=== PATIENT | female | born 1940 | race Caucasian/White ===

== ENCOUNTER 2021-11-14 16:18 | Outpatient (CLI) | payer MEDICARE, SELFPAY ==
--- NOTE | ~2021-11-14 | CT_ITS ---
EXAMINATION: CT brain wo con DATE: 11/14/2021 16:55 INDICATION: Headache, visual changes. Possible seizure. TECHNIQUE: Computed tomography (CT) of the head was performed without intravenous contrast. The mA wa s adjusted according to patient size. Iterative reconstruction technique was employed. Exam dose: 60 5.33 mGy-cm total exam DLP. COMPARISON: None FINDINGS: Bilateral vertebral artery and carotid siphon internal carotid artery calcifications. There is nonspecific diminished attenuation of the cerebral white matter, likely due to chronic small vessel ischemic changes. Moderate cerebral and cerebellar volume loss consistent with patient age. No intracranial mass lesion or hemorrhage or cerebrovascular accident is detected. No midline shift o r mass effect. No subdural or epidural hematoma is detected. No fracture or bone destruction of the cranial vault. The mastoid air cells and included paranasal si nuses are normally developed and aerated. IMPRESSION: Cerebral atherosclerosis and chronic small vessel ischemic changes of the cerebral white matter No acute intracranial finding Reviewed, dictated and finalized at [facility]. Reviewed, dictated and finalized at location [facility].
== END 2021-11-14 16:19 | disposition home or self-care (01) ==
DX: R51.9 Headache, unspecified (principal); H53.8 Other visual disturbances; I67.2 Cerebral atherosclerosis
CPT/HCPCS: 70450

== ENCOUNTER 2021-12-17 06:34 | Outpatient (CLI) | payer MEDICARE, SELFPAY ==
--- NOTE | ~2021-12-17 | CT_ITS ---
EXAMINATION: CTA brain carotid DATE: 12/17/2021 10:11 INDICATION: Seizures. Migraine. Vertigo. TECHNIQUE: Computed tomographic angiography (CTA) of the head was performed without and with 100 mL O mnipaque-350 intravenous contrast. CTA of the neck was performed with intravenous contrast. Automated exposure control and iterative reconstruction technique were employed. The dose-length product was 1 674.76 mGy-cm. Maximum intensity projection and volume rendered 3D-reconstructions were created by jose roberto mello technologist on a separate workstation. COMPARISON: brain MRI 12/17/21 FINDINGS: HEAD CTA: There are scattered areas of low attenuation in the cerebral white matter and jim. There i s no acute ischemic infarct or intracranial hemorrhage. At the anterior left cerebellar tentorium, th ere is an 8 mm mass that is isodense to carpenter matter with hyperenhancement. The ventricles are normal in size. There is mild mucosal thickening in paranasal sinuses. There are likely changes of ocular le ns replacement surgeries. The mastoid air cells are normal. Right vertebral artery is dominant. There is no significant stenosis of basilar artery or the posterior cerebral arteries. There is no signifi cant stenosis of the intracranial internal carotid arteries or anterior or middle cerebral arteries. Anterior communicating artery is normal. The posterior communicating arteries are normal. There is no aneurysm. NECK CTA: In the upper lobes of the lungs, there are tree-in-bud opacities bilaterally. There are pat irma groundglass opacities in right upper lobe. There is a 5 mm nodule left upper lobe. There are no p athologically enlarged lymph nodes. There are nodules in the thyroid measuring up to 7 mm, likely not clinically significant. There is no significant stenosis of the vertebral arteries. There is plaque in the proximal internal carotid arteries. There is 40% stenosis of the proximal right internal carot id artery relative to normal distal artery lumen diameter (NASCET criteria). There is 42% stenosis of the proximal left internal carotid artery relative to normal distal artery lumen diameter. 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 There is severe cervical sp ondylosis. IMPRESSION: 1. Moderate nonspecific cerebral white matter disease and pontine disease, which likely represents ch ronic small vessel ischemic disease. 2. 8 mm hyperenhancing mass at the left anterior cerebellar tentorium, which may be a meningioma or h emangioblastoma. 3. 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 4. 40% stenosis of the proximal right internal carotid artery relative to normal distal artery lumen diameter (NASCET criteria). 5. 42% stenosis of the proximal left internal carotid artery relative to normal distal artery lumen d iameter. 6. Mild bilateral lung disease, likely pneumonia. Reviewed, dictated and finalized at location [facility]. IMPRESSION: 1. Moderate nonspecific cerebral white matter disease and pontine disease, whic h likely represents chronic small vessel ischemic disease. 2. 8 mm hyperenhancing mass at the left anterior cerebellar tentorium, which ma y be a meningioma or hemangioblastoma. 3. 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 4. 40% stenosis of the proximal right internal carotid artery relative to geovany l distal artery lumen diameter (NASCET criteria). 5. 42% stenosis of the proximal left internal carotid artery relative to normal distal artery lumen diameter. 6. Mild bilateral lung disease, likely pneumonia.
--- NOTE | ~2021-12-17 | MR_ITS ---
EXAMINATION: MR brain/brain stem wo con DATE: 12/17/2021 09:15 INDICATION: Seizure. Complicated migraine. Vertigo. TECHNIQUE: Magnetic resonance imaging (MRI) of the brain and brainstem was performed without intraven ous contrast. COMPARISON: Head CT 12/17/2021 FINDINGS: There are scattered areas of nonspecific increased T2-weighted signal intensity in the cere bral white matter and jim. There is no intracranial hemorrhage or acute infarction. At the left cere bellar tentorium anteriorly, there is an 8 mm mass of increased T2-weighted signal intensity. The jess tricles are normal in size. There is mild mucosal thickening in the ethmoid sinuses. There are likely changes of ocular lens replacement surgeries. The mastoid air cells are normal. IMPRESSION: 1. Moderate nonspecific cerebral white matter disease and pontine disease, which likely represents ch ronic small vessel ischemic disease. 2. 8 mm mass at the left anterior cerebellar tentorium, which may be a meningioma or hemangioblastoma . Reviewed, dictated and finalized at location [facility]. IMPRESSION: 1. Moderate nonspecific cerebral white matter disease and pontine disease, whic h likely represents chronic small vessel ischemic disease. 2. 8 mm mass at the left anterior cerebellar tentorium, which may be a meningio ma or hemangioblastoma.
[2021-12-17 09:39] LABS: Estimated Glomerular Filt Rate 36
--- NOTE | 2021-12-17 09:46 | WPDNEUROLOGY ---
Neurology EEG Report General Information Date of Study: 12/17/21 TEST eeg DIAGNOSIS Possible seizures CONDITION OF RECORDING awake drowsy and sleep EEG NUMBER [id number] CLINICAL HISTORY patient reports about 2 months ago she had an episode of sitting up becoming dizzy and visual and auditory changes and left arm jerked ,whole episode lasted for less than a minute. EEG DESCRIPTION Background rhythm consists of low to medium voltage 6 to 7 hertz per 2nd theta admixed with low-voltage intermittent 8 to 9 hertz per 2nd alpha posteriorly. Bilateral symmetrical sleep activity seen during sleep. excessive amount of low to medium voltage 5 to 7 hertz per 2nd theta activity seen during wakefulness. Hyperventilation not done. Photic stimulation produced poor driving. Non paroxysmal. Nonfocal. Non lateralizing. IMPRESSION Abnormal record due to the presence of excessive amount of slow activity, considering the age of the patient and the clinical symptomatology possibility of the neuro degenerative process is likely, clinical correlation recommended. There is no evidence of paroxysmal activity throughout the tracing.
== END 2021-12-17 06:35 | disposition home or self-care (01) ==
LOC: ANHNEURO 06:36
DX: R56.9 Unspecified convulsions (principal); G43.109 Migraine with aura, not intractable, without status migrainosus; H81.13 Benign paroxysmal vertigo, bilateral; I65.23 Occlusion and stenosis of bilateral carotid arteries; R93.0 Abnormal findings on diagnostic imaging of skull and head, not elsewhere classified; I71.4 Abdominal aortic aneurysm, without rupture
CPT/HCPCS: 70496; 70498; 70551; 95816; Q9967

== ENCOUNTER 2022-05-27 11:25 | Outpatient (RCR) | payer MEDICARE, SELFPAY | END 2022-05-27 11:31 | disposition home or self-care (01) | LOC: ANHPT 11:25 | DX: H81.13 Benign paroxysmal vertigo, bilateral (principal) | CPT/HCPCS: 99199 ==

== ENCOUNTER 2023-05-05 17:35 | Inpatient (IN) | payer MEDICARE, SELFPAY ==
--- NOTE | ~2023-05-05 | CT_ITS ---
EXAMINATION: CT abdomen pelvis w con DATE: 05/05/2023 20:36 INDICATION: Abdominal pain and diarrhea TECHNIQUE: Computed tomography (CT) of the abdomen and pelvis was performed with 100 mL Omnipaque-350 intravenous contrast. Automated exposure control and iterative reconstruction technique were employe d. The dose-length product was 605.59 mGy-cm. COMPARISON: None FINDINGS: Multiple scattered small pulmonary nodules in the visualized bilateral lower lungs, the largest measu ring 7 mm in the right middle lobe and 6 mm in the lingula and left lower lobe. Additional mild disco id atelectasis in the right middle lobe and lingula. Heart size is normal. No pericardial or pleural effusion. Small sliding-type hiatal hernia. Cholecystectomy clips the gallbladder fossa. Liver, splee n, right adrenal gland and left kidney are normal. 1.3 cm right renal cyst. There is nodular thickeni ng of the left adrenal gland most likely either related to small adenomas or adrenal hyperplasia. 9 m m cystic lesion at the body the pancreas. 2.2 cm duodenal diverticulum arising from the second portio n of the duodenum. There is fluid in the proximal colon consistent with diarrhea which transitions to stool in the distal colon. No bowel obstruction. The appendix is not visualized. No pericecal inflam matory change to suggest acute appendicitis. Bladder is normal. The uterus is not identified and has likely been surgically resected. No free intraperitoneal gas or fluid. No pathologically enlarged abd ominal or pelvic lymphadenopathy. Severe lumbar spondylosis. IMPRESSION: 1. Nonspecific diarrhea. No other acute intra-abdominal/pelvic process. 2. Small sliding-type hiatal hernia. 3. Nodular thickening of the left adrenal gland which could represent small adenomas or adrenal hyper plasia. 4. 9 mm cystic lesion at the body the pancreas. The differential diagnosis includes pseudocyst, intra ductal papillary mucinous neoplasm (IPMN), mucinous cystic neoplasm (MCN), and the less common serous cystadenoma and neuroendocrine tumor. Correlate for history of pancreatitis. Recommend 1 year follow -up pre and postcontrast MRI. Reviewed, dictated and finalized at location A. BASIS CONSULTANT IMPRESSION: 1. Nonspecific diarrhea. No other acute intra-abdominal/pelvic process. 2. Small sliding-type hiatal hernia. 3. Nodular thickening of the left adrenal gland which could represent small nila nomas or adrenal hyperplasia. 4. 9 mm cystic lesion at the body the pancreas. The differential diagnosis incl udes pseudocyst, intraductal papillary mucinous neoplasm (IPMN), mucinous cysti c neoplasm (MCN), and the less common serous cystadenoma and neuroendocrine roxana or. Correlate for history of pancreatitis. Recommend 1 year follow-up pre and p ostcontrast MRI.
--- NOTE | ~2023-05-05 | CT_ITS ---
EXAMINATION: CT brain wo con DATE: 05/05/2023 17:58 INDICATION: Altered mental status TECHNIQUE: Computed tomography (CT) of the head was performed without intravenous contrast. Sagittal and coronal reconstructions were performed. The mA was adjusted according to patient size. Iterative reconstruction technique was employed. The dose-length product was 605.33 mGy-cm. COMPARISON: head CT dated 12/17/2021 FINDINGS: No acute intracranial hemorrhage, acute infarction or abnormal extra axial fluid collection. There is moderate scattered white matter hypoattenuation consistent with chronic small vessel ischemic diseas e. Symmetric prominence of the sulci consistent with mild to moderate age-appropriate diffuse cerebra l volume loss. Ventricles are normal and symmetric. No appreciable interval change in an approximatel y 8 mm isodense nodule along the anterior left cerebellar tentorium which demonstrate avid enhancemen t on the prior studies and given the location and interval stability is most consistent with a mening ioma. No other abnormal masses identified. Changes of bilateral intraocular lens replacement. The or bits, paranasal sinuses and mastoid air cells are normal. IMPRESSION: 1. No acute intracranial process. 2. Age-related changes including mild to moderate diffuse volume loss and moderate scattered nonspeci fic white matter hypoattenuation consistent with chronic small vessel ischemic disease. 3. No interval change in an 8 mm extra-axial mass at the left anterior cerebellar tentorium most like ly a meningioma. Reviewed, dictated and finalized at location A. ENT ACCESS REPRESENTATIVE IMPRESSION: 1. No acute intracranial process. 2. Age-related changes including mild to moderate diffuse volume loss and moder ate scattered nonspecific white matter hypoattenuation consistent with chronic small vessel ischemic disease. 3. No interval change in an 8 mm extra-axial mass at the left anterior cerebell ar tentorium most likely a meningioma.
--- NOTE | ~2023-05-05 | XR_ITS ---
EXAMINATION: XR chest 1V DATE: 05/05/2023 18:03 INDICATION: Altered mental status TECHNIQUE: frontal view of the chest was obtained. COMPARISON: Chest radiograph dated 04/02/2017 FINDINGS: Unchanged mild left basilar atelectasis/scarring. No other airspace opacities, pulmonary edema, pleur al effusion or pneumothorax. The cardiomediastinal silhouette is normal. IMPRESSION: 1. Unchanged mild left basilar atelectasis/scarring. Reviewed, dictated and finalized at location A. PHONE AD TAKER
--- NOTE | ~2023-05-05 | MR_ITS ---
EXAMINATION: MR brain/brain stem wo/w con DATE: 05/06/2023 11:42 INDICATION: Altered mental status. TECHNIQUE: Magnetic resonance imaging (MRI) of the brain and brainstem was performed without and with 15 mL MultiHance intravenous contrast. COMPARISON: Brain MRI 12/17/2021, head CT 05/05/23 FINDINGS: There are scattered areas of nonspecific increased T2-weighted signal intensity in the cere bral white matter and jim. There is a 9 x 8 mm enhancing extra-axial mass with dural tails at the in ferior aspect of the left cerebellar tentorium, consistent with a meningioma. There is no acute ische jenny infarct or intracranial hemorrhage. The ventricles are normal in size. There is mild mucosal thic kening in the paranasal sinuses. There are likely changes of ocular lens replacement surgeries. The m astoid air cells are normal. IMPRESSION: 1. 9 mm meningioma at the inferior aspect of left cerebellar tentorium. 2. Moderate nonspecific cerebral white matter disease and pontine disease, stable from 12/17/2021, whi ch likely represents chronic small vessel ischemic disease. Reviewed, dictated and finalized at location A. RAFT DETAIL DRAFTSPERSON IMPRESSION: 1. 9 mm meningioma at the inferior aspect of left cerebellar tentorium. 2. Moderate nonspecific cerebral white matter disease and pontine disease, stab le from 12/17/2021, which likely represents chronic small vessel ischemic diseas e.
[2023-05-05 17:37] VITALS: BP 134/67; PULSE 113; RESP 20; TEMP 36.2; O2SAT 97
--- NOTE | 2023-05-05 17:41 | ED.NEUROSD ---
HPI - Neuro Symptoms/Deficit General Chief Complaint: Neuro Symptoms/Deficit Stated Complaint: TIA Time Seen by Provider: 05/05/23 17:41 Focused HPI: This is a 83 year old female that presents to the ER for worsening memory problems. Ongoing over the last couple of weeks. She was brought in by one of her tenants for evaluation. GENERAL: Well-appearing, well-nourished, and in no acute distress. HEAD: Normocephalic, atraumatic. CHEST: Clear to auscultation. ?No respiratory distress. HEART: Regular rate and rhythm.? NEURO: ?Alert and oriented x3. Patient screened in triage and initial orders placed.? ?Additional care and disposition to be based upon?diagnostic testing and treatment. Source: patient Mode of arrival: wheelchair Limitations: altered mental status Related Data Allergies Allergy/AdvReac Type Severity Reaction Status Date / Time vancomycin Allergy Severe ANAPHALAXIS Verified 04/02/17 14:59 FEVERS albuterol Allergy Intermediate INCREASES Verified 04/02/17 14:59 WHEEZING Review of Systems Review of Systems: CONSTITUTIONAL: Denies fever EYES: Denies visual changes CARDIOVASCULAR: Denies chest pain RESPIRATORY: Denies dyspnea. GASTROINTESTINAL: Report abdominal pain, nausea, and diarrhea. Denies vomiting GENITOURINARY: Denies dysuria All systems reviewed & are unremarkable except as noted in HPI and below PMFSH Past Medical History Medical History (Updated 05/05/23 @ 23:32 by Krystyna Chamberlain PA-C) History of hypothyroidism Social History Social History (Updated 05/05/23 @ 19:56 by Krystyna Chamberlain PA-C) Substance use: never Exam Narrative: GENERAL: Elderly, well-nourished, and in no acute distress. HEAD: Normocephalic, atraumatic. EYES: PERRLA and EOMI. ENT: Nares clear, no rhinorrhea or epistaxis. Mucous membranes moist. Oropharynx without tonsillar hypertrophy exudate or other lesions. Bilateral TMs pearly carpenter non-bulging NECK: Supple. No adenopathy or masses. No JVD CHEST: Clear to auscultation. No respiratory distress. No wheezes rales or rhonchi HEART: Regular rate and rhythm. No murmur heard. Normal peripheral pulses. ABDOMEN: Soft, nontender, nondistended, normal active bowel sounds. EXTREMITIES: Normal range of motion. No edema. Strength equal in bilateral upper and lower extremities (5/5) SKIN: Warm, dry, no rash. NEURO: No focal deficits. Alert and oriented x3. Cranial nerves 2-12 grossly intact PSYCH: Normal mood and affect Course Course Emergency Course: patient was updated on her workup and recommendation for admission Consultations Consultation #1: spoke with hospitalist about patient and workup who accepts admission Date: 05/05/23 Vital Signs Vital signs: Vital Signs Temperature 97.1 F L 05/05/23 17:37 Pulse Rate 113 H 05/05/23 17:37 Respiratory Rate 20 05/05/23 17:37 Blood Pressure 134/67 05/05/23 17:37 Pulse Oximetry 97 05/05/23 17:37 Oxygen Delivery Room Air 05/05/23 17:37 Temperature 97.1 F L 05/05/23 17:37 Pulse Rate 92 05/05/23 20:13 Respiratory Rate 15 05/05/23 20:13 Blood Pressure 114/60 05/05/23 20:13 Pulse Oximetry 100 05/05/23 20:13 Oxygen Delivery Room Air 05/05/23 17:37 MDM - Neuro Symptoms/Deficit MDM Narrative Medical decision making narrative: patient presents to the emergency department for worsening confusion noted over the last several weeks. She is afebrile and nontoxic appearing. Mildly tachycardic upon arrival, this normalized with IV fluid hydration. His CBC without concerning findings. Metabolic panel with some evidence of dehydration. Also shows mild transaminitis. UA with evidence of infection. This will be sent for culture. Blood cultures drawn patient started on IV antibiotics. CT brain without acute findings. Chest x-ray is without acute findings as well. CT abdomen and pelvis obtained due to abdominal discomfort and diarrhea. Shows nonspecific diarrhea as well as a pancr
--- NOTE | 2023-05-05 17:42 | ECG_ITS ---
Measurements Intervals [place] Rate: 91 P: 7 OK: 140 QRS: -22 QRSD: 89 T: 37 QT: 353 QTc: 435 Interpretive Statements SINUS RHYTHM DELAYED PRECORDIAL R/S TRANSITION BORDERLINE T WAVE ABNORMALITY- ANTERIOR LEADS BORDERLINE ECG NO PREVIOUS ECG AVAILABLE FOR COMPARISON Electronically Signed On 05-05-2023 21:16:08 COMMERCIAL TIRE SERVICE TECHNICIAN by Jose Armando Dietrich D.O.
[2023-05-05 17:59] LABS: Basophils Percent Auto 0.4 % (0.2-1.2); Eosinophils Absolute Auto 0.2 K/mm3 (0-0.3); Eosinophils Percent Auto 2.3 % (0-4.4); Hematocrit 40.4 % (37.0-47.0); Hemoglobin 13.2 g/dL (12.0-15.0); Immature Granulocyte Absolute 0.04 K/mm3 (0.00-0.031); Immature Granulocyte Percent A 0.5 % (0-0.5); Lymphocytes Absolute Auto 1.62 K/mm3 (0.9-3.2); Lymphocytes Percent Auto 20.5 % (18.3-44.2); Mean Corpuscular HGB Conc 32.7 g/dl (32-36); Mean Corpuscular Volume 97.8 fl (80-100); Monocytes Absolute Auto 0.7 K/mm3 (0.1-0.6); Neutrophils Absolute Auto 5.3 K/mm3 (1.3-6.7); Neutrophils Percent Auto 67.3 % (45.5-73.1); Platelet Count Result 191 k/mm3 (150-375); Red Blood Count 4.13 M/mm3 (4.2-5.4); Red Cell Distribution Width 12.8 % (11.5-14.5); White Blood Count 7.9 K/mm3 (4.5-10.0)
[2023-05-05 18:12] LABS: Partial Thromboplastin Time 30.1 SECONDS (22.3-36.8); Prothrombin Time 13.3 Seconds (11.1-14.7)
[2023-05-05 18:13] LABS: Alanine Aminotransferase 150 U/L (6-35); Albumin Level 4.1 g/dL (3.5-5.1); Alkaline Phosphatase 62 U/L (38-126); Anion Gap 8 mmol/L (8-16); Aspartate Amino Transferase 135 U/L (14-36); Blood Urea Nitrogen 25 mg/dL (7-17); Calcium 11.6 mg/dL (8.4-10.2); Carbon Dioxide 29 mmol/L (22-30); Chloride 102 mmol/L (98-107); Estimated CRCL calculation 24 ml/min; Estimated Glomerular Filt Rate 31; Glucose 124 mg/dL (65-110); Potassium 4.5 mmol/L (3.4-5.0); Sodium 139 mmol/L (137-145)
[2023-05-05 18:24] LABS: Troponin I < 0.012 ng/mL (0.000-0.034)
[2023-05-05 19:38] LABS: Lipase 75 U/L (23-300)
[2023-05-05 20:10] VITALS: PULSE 94
[2023-05-05 20:13] VITALS: BP 114/60; PULSE 92; RESP 15; O2SAT 100
[2023-05-05] MEDS: ONDANSETRON INJ 4 MG/2 ML VIAL IV PUSH (20:15)
[2023-05-05] MEDS: PANTOPRAZOLE SODIUM IV 40 MG VIAL IV PUSH (20:15)
[2023-05-05] MEDS: SODIUM CHLORIDE 0.9% IV 500 ML 999 ML IV CONT (20:15)
[2023-05-05 21:04] LABS: Appearance Urine Turbid (Clear); Bacteria Urine 4+ /hpf; Bilirubin Urine Negative (Negative); Blood Urine Negative (Negative); Calcium Oxalate Crystals Urine Present /hpf; Color Urine Yellow (Yellow); Glucose Urine UA Negative (Negative); Ketones Urine 1+ mg/dL (Negative); Leukocyte Esterase Ur 2+ LEU/UL (Negative); Nitrate Urine Positive (Negative); Protein Urine Trace mg/dL (Negative); RBC Urine 21-50 /hpf (0-2); Specific Grav Ur 1.022 (1.001-1.035); Squamous Epithelial Cell Urine Few /hpf (Few); WBC Urine >100 /hpf
[2023-05-05 21:05] LABS: Add Urine Microscopic? YES
--- NOTE | 2023-05-05 22:35 | PM.IMHP ---
H&P: HPI History of Present Illness Date/Time: 05/05/23 22:35 Chief Complaint: Altered mental status Narrative: This is an 83-year-old female with past medical history significant for gout, hypothyroidism, COPD/asthma. Patient was brought to the emergency room due to altered mental status, confusion. Patient is unable to provide any history according to medical records in emergency room patient is the experimental worker of an apartment building and was brought by a tenant due to concerns for patient has not been her usual has had erratic behavior. In emergency room patient was found to have numerous WBCs present in urine. Patient is been admitted for further evaluation management and treatment. EXAMINATION: CT brain wo con DATE: 05/05/2023 17:58 INDICATION: Altered mental status TECHNIQUE: Computed tomography (CT) of the head was performed without intravenous contrast. Sagittal and coronal reconstructions were performed. The mA was adjusted according to patient size. Iterative reconstruction technique was employed. The dose-length product was 605.33 mGy-cm. COMPARISON: head CT dated 12/17/2021 FINDINGS: No acute intracranial hemorrhage, acute infarction or abnormal extra axial fluid collection. There is moderate scattered white matter hypoattenuation consistent with chronic small vessel ischemic disease. Symmetric prominence of the sulci consistent with mild to moderate age-appropriate diffuse cerebral volume loss. Ventricles are normal and symmetric. No appreciable interval change in an approximately 8 mm isodense nodule along the anterior left cerebellar tentorium which demonstrate avid enhancement on the prior studies and given the location and interval stability is most consistent with a meningioma. No other abnormal masses identified. Changes of bilateral intraocular lens replacement.? The orbits, paranasal sinuses and mastoid air cells are normal. IMPRESSION: 1. No acute intracranial process. 2. Age-related changes including mild to moderate diffuse volume loss and moderate scattered nonspecific white matter hypoattenuation consistent with chronic small vessel ischemic disease. 3. No interval change in an 8 mm extra-axial mass at the left anterior cerebellar tentorium most likely a meningioma. EXAMINATION: XR chest 1V DATE: 05/05/2023 18:03 INDICATION: Altered mental status TECHNIQUE: frontal view of the chest was obtained. COMPARISON: Chest radiograph dated 04/02/2017 FINDINGS: Unchanged mild left basilar atelectasis/scarring. No other airspace opacities, pulmonary edema, pleural effusion or pneumothorax. The cardiomediastinal silhouette is normal. IMPRESSION: 1. Unchanged mild left basilar atelectasis/scarring. EXAMINATION: CT abdomen pelvis w con DATE: 05/05/2023 20:36 INDICATION: Abdominal pain and diarrhea TECHNIQUE: Computed tomography (CT) of the abdomen and pelvis was performed with 100 mL Omnipaque-350 intravenous contrast. Automated exposure control and iterative reconstruction technique were employed. The dose-length product was 605.59 mGy-cm. COMPARISON: None FINDINGS: Multiple scattered small pulmonary nodules in the visualized bilateral lower lungs, the largest measuring 7 mm in the right middle lobe and 6 mm in the lingula and left lower lobe. Additional mild discoid atelectasis in the right middle lobe and lingula. Heart size is normal. No pericardial or pleural effusion. Small sliding-type hiatal hernia. Cholecystectomy clips the gallbladder fossa. Liver, spleen, right adrenal gland and left kidney are normal. 1.3 cm right renal cyst. There is nodular thickening of the left adrenal gland most likely either related to small adenomas or adrenal hyperplasia. 9 mm cystic lesion at the body the pancreas. 2.2 cm duodenal diverticulum arising from the second portion of the duodenum. There is fluid in the proximal colon consistent with diarrhea which transitions to stool in the distal colon. No bowel obstruction. The appendi
[2023-05-05] MEDS: cycloSPORINE 0.4 ML OPHTH SOLUTION 1 DROP EACH EYE (22:52)
[2023-05-05] MEDS: SODIUM CHLORIDE 0.9% IV 1,000 ML 999 ML IV CONT (23:09)
[2023-05-05 23:38] VITALS: BP 101/52; PULSE 99; RESP 15; O2SAT 92
[2023-05-06] VITALS (11 sets, daily range): BP systolic 84–123; BP diastolic 45–76; PULSE 84–93; RESP 15–18; TEMP 36.3–36.8; O2SAT 94–99; BMI 30.1
[2023-05-06 03:39] LABS: Creatine Kinase 237 U/L (30-135)
[2023-05-06 03:48] LABS: Ethanol < 10 mg/dL (<10)
[2023-05-06] MEDS: diazePAM (*CRX) 5 MG TABLET 10 MG PO (05:08)
--- NOTE | 2023-05-06 07:33 | PC.NURSE ---
this RN called dietary and ordered a breakfast tray at this time
[2023-05-06] MEDS: cycloSPORINE 0.4 ML OPHTH SOLUTION 1 DROP EACH EYE ×2 (09:38→20:29)
--- NOTE | 2023-05-06 09:52 | PM.IMPN ---
Progress Note: A&P Assessment and Plan (1) Altered mental status: Qualifiers: Altered mental status type: unspecified Qualified Code(s): R41.82 - Altered mental status, unspecified Code(s): R41.82 - Altered mental status, unspecified Status: Acute (2) Acute UTI: Code(s): N39.0 - Urinary tract infection, site not specified Status: Acute (3) Pancreatic cyst: Code(s): K86.2 - Cyst of pancreas Status: Acute (4) Acute renal failure: Code(s): N17.9 - Acute kidney failure, unspecified Status: Acute (5) Hypotension due to hypovolemia: Code(s): E86.1 - Hypovolemia Status: Acute Plan Start fluid resuscitation (1) Altered mental status: ?Qualifiers: ?Altered mental status type:?unspecified? Qualified Code(s):?R41.82 - Altered mental status, unspecified ?Code(s): R41.82 - Altered mental status, unspecified ?Status:?Acute ?Assessment and Plan: Likely secondary to urinary tract infection, hypotension, acute renal failure Supportive care CT of the head reviewed Supportive care (2) Acute UTI: ?Code(s): N39.0 - Urinary tract infection, site not specified ?Status:?Acute ?Assessment and Plan: Patient started on antibiotics Await cultures Acute renal failure BUN 25, creatinine 1.6, baseline creatinine 1.4 UA shows urine cause, possible secondary to acute tubular necrosis and hypotension Start fluid resuscitation Avoid nephrotoxic medication Hypovolemic hypotension Blood pressure 84/61 Associated acute renal failure Start normal saline bolus and normal saline IV 150ml/h Acute gastroenteritis Patient has been having abdomen pain, nausea vomiting diarrhea about a week Order stool culture, C diff screening Patient is on fluid resuscitation Start and medication as needed Subjective Date/time seen: 05/06/23 09:52 Interval history: I saw exam patient today, patient still has some abdomen pain bilateral lower abdomen, patient has been having and no pain diarrhea associated with nausea vomiting in past 7 days, patient also has some dysuria Exam Narrative: GENERAL: Pleasant, in no acute distress. Well-nourished. - EYES: EOMI. Anicteric. - HENT: Dry mucous membranes. - LUNGS: Clear to auscultation bilaterally, no wheezing, rhonchi, or rales. - CARDIOVASCULAR: Regular rate and rhythm. No murmur. No JVD. - ABDOMEN: Soft, bilateral lower abdominal tender and non-distended. No palpable masses. - EXTREMITIES: No edema. Peripheral pulses 2+. Non-tender. - NEUROLOGIC: No focal neurological deficits. CN II-XII grossly intact. - PSYCHIATRIC: Awake, Alert and oriented x 3. Appropriate mood and affect. - SKIN: No rashes or lesions. Warm. - LYMPH: No cervical lymphadenopathy. Objective Data Vital Signs Vital Signs: Vital Signs - 24 hr 05/05/23 17:37 05/05/23 20:10 05/05/23 20:13 Temperature 97.1 F L Pulse Rate 113 H 94 92 Respiratory Rate 20 15 Blood Pressure 134/67 114/60 Pulse Oximetry 97 100 Oxygen Delivery Room Air 05/05/23 23:38 05/06/23 03:28 05/06/23 07:15 Temperature Pulse Rate 99 87 84 Respiratory Rate 15 15 16 Blood Pressure 101/52 L 106/55 L 100/45 L Pulse Oximetry 92 94 99 Oxygen Delivery 05/06/23 08:28 05/06/23 09:38 Temperature 98.1 F 97.4 F L Pulse Rate 89 92 Respiratory Rate 18 15 Blood Pressure 115/60 84/61 L Pulse Oximetry 95 99 Oxygen Delivery Intake/Output Intake/Output: Intake & Output 05/03/23 05/04/23 05/05/23 05/06/23 23:59 23:59 23:59 23:59 Intake Total 550 1000 Balance 550 1000 Meds/Results Medications: Active Medications Generic Name Dose Route Start Last Admin Trade Name Freq PRN Reason Stop Dose Admin Cyclosporine 1 drop 05/06/23 09:00 05/06/23 09:38 Cyclosporine 0.4 Ml Ophth Solution EACH EYE 1 drop Q12HR HEAVEN Administration Ceftriaxone Sodium 1 gm in 50 mls @ 100 mls/hr 05/06/23 21:00 Rocephin 1
[2023-05-06] MEDS: SODIUM CHLORIDE 0.9% IV 1,000 ML 150 ML IV CONT (10:54)
--- NOTE | 2023-05-06 11:30 | PC.NURSE ---
pt in MRI at this time.
--- NOTE | 2023-05-06 11:44 | PC.NURSE ---
pt returned to room 1 from MRI.
[2023-05-06 12:27] LABS: Basophils Percent Auto 0.5 % (0.2-1.2); Eosinophils Absolute Auto 0.1 K/mm3 (0-0.3); Hematocrit 33.1 % (37.0-47.0); Hemoglobin 10.9 g/dL (12.0-15.0); Immature Granulocyte Absolute 0.04 K/mm3 (0.00-0.031); Immature Granulocyte Percent A 0.6 % (0-0.5); Lymphocytes Absolute Auto 1.12 K/mm3 (0.9-3.2); Lymphocytes Percent Auto 17.6 % (18.3-44.2); Mean Corpuscular HGB Conc 32.9 g/dl (32-36); Mean Corpuscular Hemoglobin 32.4 pg (26-34); Mean Corpuscular Volume 98.5 fl (80-100); Mean Platelet Volume 12.2 fl (7.4-10.4); Monocytes Absolute Auto 0.6 K/mm3 (0.1-0.6); Monocytes Percent Auto 8.6 % (2.6-8.5); Neutrophils Absolute Auto 4.5 K/mm3 (1.3-6.7); Neutrophils Percent Auto 70.7 % (45.5-73.1); Platelet Count Result 146 k/mm3 (150-375); Red Blood Count 3.36 M/mm3 (4.2-5.4); Red Cell Distribution Width 12.7 % (11.5-14.5); White Blood Count 6.4 K/mm3 (4.5-10.0)
[2023-05-06 12:36] LABS: Anion Gap 5 mmol/L (8-16); Blood Urea Nitrogen 21 mg/dL (7-17); Calcium 9.7 mg/dL (8.4-10.2); Carbon Dioxide 27 mmol/L (22-30); Chloride 104 mmol/L (98-107); Estimated CRCL calculation 32 ml/min; Estimated Glomerular Filt Rate 43; Glucose 119 mg/dL (65-110); Potassium 4.5 mmol/L (3.4-5.0); Sodium 136 mmol/L (137-145)
--- NOTE | 2023-05-06 14:00 | PC.NURSE ---
ordered pt lunch tray.
--- NOTE | 2023-05-06 16:27 | ADMGEN ---
This patient, Judy Caldera, was admitted to 2 Medical Room 240-01. Patient/family oriented to hospital policies and general routines including ID bracelet, bed and alarms, visiting hours, pain management, procedures, bathroom and other care routines, personal items, smoking policy, room service/diet, and visiting hours. Information on how to activate the Rapid Response Team has been discussed. Patient/Family are encouraged to report perceived risks to care and to ask questions if they do not understand what they are told or what they should do.
--- NOTE | 2023-05-06 18:58 | PC.NURSE ---
During admission assessment, RN asked the patient if she had any falls within the last 6 months. The patient stated she did, and said it was here. When the RN asked her to elaborate, the patient stated she fell out of her chair in the ER. Patient stated she did not report it to any ER staff, and staff did not witness her fall. RN spoke to patient about safety precautions on the unit, call light, and bed alarm. RN reported what the patient said to the propellant charge loader, Joellen Buck.
[2023-05-07] VITALS: PULSE 88
[2023-05-07] MEDS: SODIUM CHLORIDE 0.9% IV 1,000 ML 150 ML IV CONT (01:10)
[2023-05-07 04:00] VITALS: PULSE 82
[2023-05-07 05:04] VITALS: BP 120/59; PULSE 81; RESP 17; TEMP 36.7; O2SAT 94
--- NOTE | 2023-05-07 07:10 | P.CDI_ITS ---
CDI Query Clarification Request Documentation in the medical record indicates that this patient has been d iagnosed as having the symptoms of ALTERED MENTAL STATUS. Additional findings also documented in the medical record : * UTI * Acute Renal Failure * Hypotension * Elevated BUN/ Creatinine Based on your medical judgement can you further clarify in the progress notes, if known, if these findings associated with altered mental status are due to a definite or suspected underlying neurologic cause such as: * Metabolic Encephalopathy * Toxic Encephalopathy * Altered mental status without encephalopathy * Other condition (Please specify) * None of the above/ Not applicable. <Emerald Comer RN - Last Filed: 05/07/23 07:20> Clarified Diagnosis Clarified Diagnosis: * Metabolic Encephalopathy <Adam Gary MD - Last Filed: 05/07/23 07:28>
--- NOTE | 2023-05-07 07:10 | WPDCDIQUERY2 ---
CDI Query Clarification Request Documentation in the medical record indicates that this patient has been diagnosed as having the symptoms of ALTERED MENTAL STATUS. Additional findings also documented in the medical record : UTI Acute Renal Failure Hypotension Elevated BUN/ Creatinine Based on your medical judgement can you further clarify in the progress notes, if known, if these findings associated with altered mental status are due to a definite or suspected underlying neurologic cause such as: Metabolic Encephalopathy Toxic Encephalopathy Altered mental status without encephalopathy Other condition (Please specify) None of the above/ Not applicable. <Emerald Comer RN - Last Filed: 05/07/23 07:20> Clarified Diagnosis Clarified Diagnosis: Metabolic Encephalopathy <Adam Gary MD - Last Filed: 05/07/23 07:28>
--- NOTE | 2023-05-07 07:34 | PM.IMPN ---
Progress Note: A&P Assessment and Plan (1) Altered mental status: Qualifiers: Altered mental status type: unspecified Qualified Code(s): R41.82 - Altered mental status, unspecified Code(s): R41.82 - Altered mental status, unspecified Status: Acute (2) Acute UTI: Code(s): N39.0 - Urinary tract infection, site not specified Status: Acute (3) Pancreatic cyst: Code(s): K86.2 - Cyst of pancreas Status: Acute (4) Acute renal failure: Code(s): N17.9 - Acute kidney failure, unspecified Status: Acute (5) Hypotension due to hypovolemia: Code(s): E86.1 - Hypovolemia Status: Acute (6) Acute metabolic encephalopathy: Code(s): G93.41 - Metabolic encephalopathy Status: Acute Plan Start fluid resuscitation (1) Altered mental status: ?Qualifiers: ?Altered mental status type:?unspecified? Qualified Code(s):?R41.82 - Altered mental status, unspecified ?Code(s): R41.82 - Altered mental status, unspecified ?Status:?Acute ?Assessment and Plan: Possible acute metabolic encephalopathy Patient was confused upon arrival in the ED Likely secondary to urinary tract infection, hypotension, acute renal failure CT of the head reviewed, shows no acute intracranial issues Treat underlying disease Neuro check Supportive care [facility] MRI 05/06 1. 9 mm meningioma at the inferior aspect of left cerebellar tentorium. 2. 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 plans to consult neurosurgeon for evaluation, but pt declined and wished to go home (2) Acute UTI: ?Code(s): N39.0 - Urinary tract infection, site not specified ?Status:?Acute ?Assessment and Plan: Patient started on antibiotics Await cultures Urine culture grows Gram-negative bacilli Acute renal failure BUN 25, creatinine 1.6, baseline creatinine 1.4 UA shows urine cause, possible secondary to acute tubular necrosis and hypotension Start fluid resuscitation Avoid nephrotoxic medication Hypovolemic hypotension Blood pressure 84/61 Associated acute renal failure Start normal saline bolus and normal saline IV 150ml/h Acute gastroenteritis Patient has been having abdomen pain, nausea vomiting diarrhea about a week Order stool culture, C diff screening Patient is on fluid resuscitation Start and medication as needed Patient wishes to go home AMA Subjective Date/time seen: 05/07/23 07:34 Interval history: I saw and examined the patient today, patient denied headache, focal weakness, abdomen pain, nausea vomiting, patient afebrile overnight, blood pressure became stable. Exam Narrative: GENERAL: Pleasant, in no acute distress. Well-nourished. - EYES: EOMI. Anicteric. - HENT: Dry mucous membranes. - LUNGS: Clear to auscultation bilaterally, no wheezing, rhonchi, or rales. - CARDIOVASCULAR: Regular rate and rhythm. No murmur. No JVD. - ABDOMEN: Soft, bilateral lower abdominal tender and non-distended. No palpable masses. - EXTREMITIES: No edema. Peripheral pulses 2+. Non-tender. - NEUROLOGIC: No focal neurological deficits. CN II-XII grossly intact. - PSYCHIATRIC: Awake, Alert and oriented x 3. Appropriate mood and affect. - SKIN: No rashes or lesions. Warm. - LYMPH: No cervical lymphadenopathy. Objective Data Vital Signs Vital Signs: Vital Signs - 24 hr 05/06/23 08:28 05/06/23 09:38 05/06/23 10:57 Temperature 98.1 F 97.4 F L Pulse Rate 89 92 93 Respiratory Rate 18 15 18 Blood Pressure 115/60 84/61 L 122/61 Pulse Oximetry 95 99 99 Oxygen Delivery 05/06/23 13:54 05/06/23 13:59 05/06/23 15:51 Temperature 98.3 F 98.3 F 98 F Pulse Rate 84 84 92 Respiratory Rate 16 17 17 Blood Pressure 121/68 121/68 101/76 Pulse Oximetry 95 95 96 Oxygen Delivery 05/06/23 16:28 05/06/23 18:21 05/06/23 16:00 Te
[2023-05-07 08:00] VITALS: PULSE 85
[2023-05-07 08:23] LABS: Basophils Percent Auto 0.6 % (0.2-1.2); Eosinophils Absolute Auto 0.1 K/mm3 (0-0.3); Eosinophils Percent Auto 2.7 % (0-4.4); Hematocrit 32.5 % (37.0-47.0); Hemoglobin 10.5 g/dL (12.0-15.0); Immature Granulocyte Absolute 0.05 K/mm3 (0.00-0.031); Lymphocytes Absolute Auto 1.18 K/mm3 (0.9-3.2); Lymphocytes Percent Auto 23.1 % (18.3-44.2); Mean Corpuscular HGB Conc 32.3 g/dl (32-36); Mean Corpuscular Hemoglobin 32.3 pg (26-34); Mean Platelet Volume 12.3 fl (7.4-10.4); Monocytes Absolute Auto 0.5 K/mm3 (0.1-0.6); Monocytes Percent Auto 8.8 % (2.6-8.5); Neutrophils Absolute Auto 3.3 K/mm3 (1.3-6.7); Neutrophils Percent Auto 63.8 % (45.5-73.1); Platelet Count Result 143 k/mm3 (150-375); Red Blood Count 3.25 M/mm3 (4.2-5.4); Red Cell Distribution Width 12.8 % (11.5-14.5); White Blood Count 5.1 K/mm3 (4.5-10.0)
[2023-05-07] MEDS: cycloSPORINE 0.4 ML OPHTH SOLUTION 1 DROP EACH EYE (08:26)
[2023-05-07 08:30] LABS: Anion Gap 6 mmol/L (8-16); Blood Urea Nitrogen 14 mg/dL (7-17); Calcium 9.1 mg/dL (8.4-10.2); Carbon Dioxide 24 mmol/L (22-30); Chloride 110 mmol/L (98-107); Estimated CRCL calculation 38 ml/min; Estimated Glomerular Filt Rate 53; Glucose 112 mg/dL (65-110); Magnesium 1.4 mg/dL (1.6-2.3); Phosphorus 2.5 mg/dL (2.5-4.5); Potassium 3.9 mmol/L (3.4-5.0); Sodium 140 mmol/L (137-145)
--- NOTE | 2023-05-07 11:20 | PM.DS ---
DS: Admitting Diagnosis Discharge Date 05/07/23 Admitting Diagnosis (1) Altered mental status: ?Qualifiers: ?Altered mental status type:?unspecified? Qualified Code(s):?R41.82 - Altered mental status, unspecified ?Code(s): R41.82 - Altered mental status, unspecified ?Status:?Acute (2) Acute UTI: ?Code(s): N39.0 - Urinary tract infection, site not specified ?Status:?Acute (3) Pancreatic cyst: ?Code(s): K86.2 - Cyst of pancreas ?Status:?Acute (4) Acute renal failure: ?Code(s): N17.9 - Acute kidney failure, unspecified ?Status:?Acute (5) Hypotension due to hypovolemia: ?Code(s): E86.1 - Hypovolemia ?Status:?Acute (6) Acute metabolic encephalopathy: ?Code(s): G93.41 - Metabolic encephalopathy ?Status:?Acute DS: Discharge Diagnosis Discharge Diagnosis (1) Altered mental status: Qualifiers: Altered mental status type: unspecified Qualified Code(s): R41.82 - Altered mental status, unspecified Code(s): R41.82 - Altered mental status, unspecified Status: Acute (2) Acute UTI: Code(s): N39.0 - Urinary tract infection, site not specified Status: Acute (3) Pancreatic cyst: Code(s): K86.2 - Cyst of pancreas Status: Acute (4) Acute renal failure: Code(s): N17.9 - Acute kidney failure, unspecified Status: Acute (5) Hypotension due to hypovolemia: Code(s): E86.1 - Hypovolemia Status: Acute (6) Acute metabolic encephalopathy: Code(s): G93.41 - Metabolic encephalopathy Status: Acute DS: Summary Hospital Course Hospital Course: This is an 83-year-old female with past medical history significant for gout, hypothyroidism, COPD/asthma.? Patient was brought to the emergency room due to altered mental status, confusion.? 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 In emergency room patient was found to have numerous WBCs present in urine.? Patient is been admitted for further evaluation management and treatment. The following med issues have been addressed during hospitalization (1) Altered mental status: ?Qualifiers: ?Altered mental status type:?unspecified? Qualified Code(s):?R41.82 - Altered mental status, unspecified ?Code(s): R41.82 - Altered mental status, unspecified ?Status:?Acute ?Assessment and Plan: Possible acute metabolic encephalopathy Patient was confused upon arrival in the ED Likely secondary to urinary tract infection, hypotension, acute renal failure CT of the head reviewed, shows no acute intracranial issues Treat underlying disease Neuro check Supportive care 05/07 Patient is mentally clear oriented x3 [facility] MRI 05/06 1. 9 mm meningioma at the inferior aspect of left cerebellar tentorium. 2. 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 plans to consult neurosurgeon for evaluation, but pt declined and wished to go home (2) Acute UTI: ?Code(s): N39.0 - Urinary tract infection, site not specified ?Status:?Acute ?Assessment and Plan: Patient started on antibiotics Await cultures 2/2 Urine culture grows Gram-negative bacilli Acute renal failure BUN 25, creatinine 1.6, baseline creatinine 1.4 UA shows urine cause, possible secondary to acute tubular necrosis and hypotension Start fluid resuscitation Avoid nephrotoxic medication 2/2 resolved Hypovolemic hypotension Blood pressure 84/61 Associated acute renal failure Start normal saline bolus and normal saline IV 150ml/h 2/2 BP stable Acute gastroenteritis Patient has been having abdomen pain, nausea vomiting diarrhea about a week Order stool
== END 2023-05-07 11:30 | disposition left against medical advice (07) | DRG 689 ==
LOC: ANHED 19:25 → ANH3MEDSUR 23:05 → ANH2MED 05-06 16:41 → ANH3MEDSUR 05-10 14:46
PROVIDERS: Admitting Provider Internal Medicine; Emergency Provider Physician Assistant; Visit Provider Hospitalist
DX: N39.0 Urinary tract infection, site not specified (principal); G93.41 Metabolic encephalopathy; N17.9 Acute kidney failure, unspecified; K86.2 Cyst of pancreas; K52.9 Noninfective gastroenteritis and colitis, unspecified; J44.9 Chronic obstructive pulmonary disease, unspecified; D32.9 Benign neoplasm of meninges, unspecified; E03.9 Hypothyroidism, unspecified; E86.1 Hypovolemia; R10.9 Unspecified abdominal pain
CPT/HCPCS: 36415; 70450; 70553; 71045; 74177; 80048; 80053; 80307; 81001; 82550; 83690; 83735; 84100; 84443; 84484; 85025; 85610; 85730; 87040; 87086; 87186; 93005; 96361; 96365; 96375; 99285; A9270; A9577; C9113; G0378; J0696; J2405; J7030; J7040; Q9967